=== PATIENT | male | born 1970 | race African-American/Black ===

== ENCOUNTER 2024-12-18 06:33 | Emergency (ER) | payer SELFPAY ==
[2024-12-18 07:16] LABS: Hematocrit 50.5 % (42.0-52.0); Hemoglobin 15.7 g/dL (14.0-18.0); Mean Corpuscular Hemoglobin 30.0 pg (27.0-31.0); Mean Corpuscular Volume 96.4 fl (78.0-98.0); Platelet Count 252 10x3/uL (130-400); Red Blood Cell (RBC) Count 5.24 mill/uL (4.70-6.10); White Blood Cell (WBC) Count 9.2 10x3/uL (4.8-10.8)
[2024-12-18 07:25] LABS: MDiff Complete? YES; Manual Diff?? YES
[2024-12-18 07:26] LABS: Platelet Adequacy Comment Appears Adequate
[2024-12-18 07:30] LABS: ALT (SGPT) 21 U/L (Less than 45); AST (SGOT) 16 U/L (11-34); Albumin 3.5 g/dL (3.1-4.5); Alkaline Phosphatase 116 U/L (40-110); Anion Gap 18 mmol/L (10-20); BUN (Urea Nitrogen) 16 mg/dL (8.4-25.7); Bilirubin, Total 0.7 mg/dL (0.3-1.2); Calc. Creatinine Clearance 0 mL/min (70-130); Calcium 8.3 mg/dL (7.8-10.44); Carbon Dioxide 24 mmol/L (22-29); Chloride 102 mmol/L (98-107); Globulin 3.0 g/dL (2.4-3.5); Glucose 149 mg/dL (70-105); Potassium 3.7 mmol/L (3.5-5.1); Sodium 140 mmol/L (136-145)
[2024-12-18 07:43] LABS: Bicarbonate (HCO3v) 26.2 mmol/L (22.0-28.0); CO2 Tension (PvCO2) 51.5 mmHg (42.0-51.0); Calcium, Ionized 1.07 mmol/L (1.15-1.33); Chloride 105 mmol/L (98-107); Hemoglobin - Calc 15.3 g/dL (14.0-18.0); Potassium 3.6 mmol/L (3.5-5.1); Sodium 139 mmol/L (138-145); T. Carbon Dioxide 27.8 mmol/L (22.0-28.0); vO2 Saturation-calc 98.8 % (60.0-85.0)
[2024-12-18 07:45] LABS: Troponin I Less than 0.010 ng/mL (< 0.028)
[2024-12-18] MEDS ORDERED: Iopamidol 370 76% 100 ML VIAL ONE (09:00)
[2024-12-18 10:12] LABS: Calcium, Ionized 1.13 mmol/L (1.15-1.33); Potassium 4.0 mmol/L (3.5-5.1)
[2024-12-18 10:17] LABS: Bicarbonate (HCO3v) 29.1 mmol/L (22.0-28.0); CO2 Tension (PvCO2) 44.4 mmHg (42.0-51.0); Chloride 103 mmol/L (98-107); Hemoglobin - Calc 16.6 g/dL (14.0-18.0); Sodium 136 mmol/L (138-145); T. Carbon Dioxide 30.4 mmol/L (22.0-28.0); vO2 Saturation-calc 99.6 % (60.0-85.0)
[2024-12-18 12:47] LABS: Glucose, Urine (Dipstick) Negative (Negative); Leukocyte Negative (Negative); Protein, Urine (Dipstick) Trace mg/dL (Neg-Trace); Specific Gravity, Urine 1.015 (1.005-1.030)
[2024-12-18 12:53] LABS: RBC/HPF 0-3 HPF (0-3)
[2024-12-18 12:54] LABS: Bacteria/HPF Rare-Few HPF (None Seen); CAUTI Indications for Culture Pelvic or flank pain; Cocaine Metabolite Screen Negative (Negative); THC/Cannabinoid Screen Negative (Negative); Tricyclic Screen Negative (Negative); WBC/HPF 0-3 HPF (0-3)
[2024-12-18 12:55] LABS: Urine Culture Reflex No No
== END 2024-12-18 13:48 | disposition short-term general hospital (02) ==
LOC: MADERS 06:33
DX: R55 Syncope and collapse (principal); N17.9 Acute kidney failure, unspecified; I95.9 Hypotension, unspecified; R60.9 Edema, unspecified; I10 Essential (primary) hypertension; E66.9 Obesity, unspecified; F17.210 Nicotine dependence, cigarettes, uncomplicated; Z79.899 Other long term (current) drug therapy
CPT/HCPCS: 71045; 71275; 80053; 80306; 81001; 82330; 82435; 82803; 83880; 84132; 84295; 84484; 85014; 85025; 85379; 93005; 96360; 96361; J7120; Q9967